=== PATIENT | male | born 1970 | race Two or more races ===

== ENCOUNTER 2016-11-18 02:47 | Emergency (ER) | payer OTHER ==
[~2016-11-18] VITALS: Ht 175.3 cm; Wt 86.7 kg
[2016-11-18] MEDS ORDERED: KETOROLAC TROMETHAMINE INJ 30 MG/ML VIAL IV ONE (03:00)
[2016-11-18] MEDS ORDERED: KETOROLAC TROMETHAMINE INJ 30 MG/ML VIAL ONE (03:10)
[2016-11-18 03:22] LABS: BASOPHILS % (AUTO) 0.7 % (0.0-2.0); DIFF TOTAL % 100 %; EOSINOPHILS # (AUTO) 0.2 /CMM (0.0-0.7); EOSINOPHILS % (AUTO) 2.7 % (0.0-6.0); HEMATOCRIT 47 % (39-51); HEMOGLOBIN 15.9 g/dL (13.5-17.5); LYMPHOCYTES # (AUTO) 2.6 /CMM (0.8-4.8); LYMPHOCYTES % (AUTO) 45.4 % (20.0-44.0); MEAN CORPUSCULAR HEMOGLOBIN 28 PG (26.0-33.0); MEAN CORPUSCULAR HGB CONC 34 g/dl (31.0-36.0); MEAN CORPUSCULAR VOLUME 82 fL (80-96); MONOCYTES # (AUTO) 0.6 /CMM (0.1-1.30); MONOCYTES % (AUTO) 10.2 % (2.0-12.0); NEUTROPHILS # (AUTO) 2.3 /CMM (1.8-8.9); PLATELET COUNT (AUTO) 349 /CMM (150-450); RED BLOOD CELL COUNT(AUTO) 5.67 MIL/uL (4.5-6.0); WHITE BLOOD COUNT (AUTO) 5.7 K/uL (4.3-11.0)
[2016-11-18 03:31] LABS: ANION GAP 14 (5-14); CALCIUM, SERUM 9.6 mg/dL (8.5-10.1); CARBON DIOXIDE 27 mmol/L (21-32); CHLORIDE 103 mmol/L (98-107); GFR 80 mL/min (>60); GLUCOSE 124 mg/dL (74-106); POTASSIUM 3.7 mmol/L (3.5-5.1); SODIUM SERUM 140 mmol/L (136-145); UREA NITROGEN, BLOOD 12 mg/dL (7-18)
[2016-11-18 03:40] LABS: TROPONIN I < 0.017 ng/mL (0.00-0.056)
[2016-11-18 03:42] LABS: INR 1.05 (0.87-1.13); PROTHROMBIN TIME 11.4 SECS (9.5-12.7)
[2016-11-18] MEDS ORDERED: LORAZEPAM INJ 2 MG/ML VIAL ONE (04:22)
[2016-11-18] MEDS ORDERED: LORAZEPAM INJ 2 MG/ML VIAL IV ONE (04:30)
[2016-11-18 04:56] VITALS: BP 137/69
== END 2016-11-18 04:58 | disposition home or self-care (01) ==
LOC: ER 02:49
DX: R07.9 Chest pain, unspecified (principal); G47.00 Insomnia, unspecified; F41.9 Anxiety disorder, unspecified; Z88.0 Allergy status to penicillin
CPT/HCPCS: 36415; 71010; 80048; 84484; 85025; 85378; 85730; 93005; 96374 ×2; 99285; A4606; J1885; J2060; Z7610

== ENCOUNTER 2018-06-24 19:45 | Inpatient (IN) | payer OTHER ==
[~2018-06-24] VITALS: Ht 175.3 cm; Wt 90.3 kg
--- NOTE | 2018-06-24 20:05 | NUR ---
PT BIB FAMILY. PT STATES HE WAS SEEN AT AN URGENT CARE EARLIER TODAY AND BROUGHT IN FOR POSSIBLE APPENDIX. PT HAS PAIN ON PALPATION. PT DENIES NVD. AAOX4, RESPIRATIONS EVEN AND UNLABORED. NO ACUTE DISTRESS NOTED AT THIS TIME. PT PLACED ON MONITOR, WAITING MD EVALUATION
--- NOTE | 2018-06-24 20:13 | NUR ---
MD AT BEDSIDE FOR EVALUATION
--- NOTE | 2018-06-24 20:20 | NUR ---
[employer]BEST[employer] SIDING INSTALLER AT BEDSIDE FOR LABS
[2018-06-24 20:28] LABS: BASOPHILS # (AUTO) 0.1 /CMM (0.0-0.2); BASOPHILS % (AUTO) 1.8 % (0.0-2.0); EOSINOPHILS % (AUTO) 3.7 % (0.0-6.0); HEMATOCRIT 45 % (39-51); HEMOGLOBIN 14.9 g/dL (13.5-17.5); LYMPHOCYTES # (AUTO) 2.6 /CMM (0.8-4.8); LYMPHOCYTES % (AUTO) 45.7 % (20.0-44.0); MEAN CORPUSCULAR HGB CONC 33 g/dl (31.0-36.0); MEAN CORPUSCULAR VOLUME 82 fL (80-96); MONOCYTES # (AUTO) 0.7 /CMM (0.1-1.30); NEUTROPHILS # (AUTO) 2.1 /CMM (1.8-8.9); NEUTROPHILS % (AUTO) 36.8 % (43.0-81.0); PLATELET COUNT (AUTO) 433 /CMM (150-450); RDW COEFFICIENT OF VARIATION 12.8 (11.5-15.0); RED BLOOD CELL COUNT(AUTO) 5.46 MIL/uL (4.5-6.0); WHITE BLOOD COUNT (AUTO) 5.7 K/uL (4.3-11.0)
[2018-06-24] MEDS ORDERED: IV NS 0.9% 1,000 ML BAG IV ONE (20:30)
[2018-06-24 20:49] LABS: ALBUMIN 3.6 g/dL (3.4-5.0); BILIRUBIN,TOTAL 0.2 mg/dL (0.2-1.0); CALCIUM, SERUM 9.5 mg/dL (8.5-10.1); CREATININE 1.1 mg/dL (0.6-1.3); POTASSIUM 4.1 mmol/L (3.5-5.1); TOTAL PROTEIN, SERUM 7.6 g/dL (6.4-8.2)
[2018-06-24] MEDS ORDERED: CT SWABBABLE VALVE TRANS SET 1 EA INFUS.SET MC ONE (21:18)
[2018-06-24] MEDS ORDERED: IV NS 0.9% 250 ML IV ONE (21:18)
[2018-06-24] MEDS ORDERED: IOHEXOL-300 100 ML VIAL IV ONE (21:18)
--- NOTE | 2018-06-24 21:18 | NUR ---
CALLED RADIOLOGY FOR CT
--- NOTE | 2018-06-24 21:20 | NUR ---
PT BROUGHT BY RADIOLOGY FOR CT
[2018-06-24 21:26] LABS: APPEARANCE,URINE Clear (CLEAR); BILIRUBIN,URINE Negative (NEGATIVE); BLOOD, URINE Moderate Ery/uL (NEGATIVE); COLOR,URINE Yellow (YELLOW); KETONES,URINE Negative (NEGATIVE); LEUKOCYTE ESTERASE ,URINE Negative (NEGATIVE); NITRITE, URINE Negative (NEGATIVE); PH,URINE 5.5 (5.0-8.0); PROTEIN,URINE Negative (NEGATIVE); UGLUCOSE Negative (NEGATIVE); UROBILINOGEN,URINE 0.2 EU/dL (0.2)
--- NOTE | 2018-06-24 21:35 | NUR ---
PT RETURNED FROM CT
[2018-06-24 21:48] LABS: BACTERIA,URINE Rare /HPF (None Seen); CALCIUM OXALATE CRYSTALS,UR Moderate /HPF (None Seen); SQUAMOUS EPITHELIAL CELL,UR Few /HPF (None Seen); URINE AMORPHOUS URATE Few /HPF (None Seen); WBC,URINE 0-2 /HPF (0-3)
--- NOTE | 2018-06-24 22:25 | NUR ---
CALLED [facility] FOR REPORT. STATES IT IS CURRENTLY BEING READ
[2018-06-24] MEDS ORDERED: CIPROFLOXACIN IV RTU 400 MG in PREMIX 1 EA IV STA (22:33)
--- NOTE | 2018-06-24 22:45 | NUR ---
CALLED [facility] FOR PANEL ADMISSION, DR. SWEENEY SPEAKING DR. LEI AT THIS TIME.
[2018-06-24] MEDS ORDERED: PIPERACILLIN /TAZOBACTAM 3.375 G VIAL IV ONE (22:47)
[2018-06-24] MEDS ORDERED: FLAGYL/NS RTU 500 MG/100 ML PIGGYBACK IV ONE (23:00)
[2018-06-24] MEDS ORDERED: PIPERACILLIN /TAZOBACTAM 3.375 G in IV D5W 50 ML IV ONE (23:00)
--- NOTE | 2018-06-24 23:13 | NUR ---
GAVE REPORT TO ESTEFANI PRINCE FOR MIR
--- NOTE | 2018-06-24 23:26 | NUR ---
PT TRANSFERRED TO [facility] WITH EMT
[2018-06-24 23:30] VITALS: BP 132/81
[2018-06-24] MEDS ORDERED: Z GUARD REMEDY 2 OZ OINT TP PRN (23:30)
[2018-06-24] MEDS ORDERED: MAG HYDROX/AL HYDROX/SIMETH 30 ML UDC PO PRN (23:30)
[2018-06-24] MEDS ORDERED: MAGNESIUM HYDROXIDE 30 ML UDC PO PRN (23:30)
[2018-06-24] MEDS ORDERED: ZOLPIDEM TARTRATE 5 MG TABLET PO PRN (23:30)
[2018-06-24] MEDS ORDERED: METRONIDAZOLE 500MG/ NS 100ML 100 ML IV ONE (23:42)
[2018-06-24] MEDS: IV 1/2NS 1000 ML 1,000 ML IV PRN (23:48)
[2018-06-24] MEDS: METRONIDAZOLE 500MG/ NS 100ML 500 MG in PREMIX 1 EA IV SCH (23:56)
[2018-06-25 00:19] VITALS: BP 132/81
--- NOTE | 2018-06-25 00:33 | NUR ---
RN ADMITTING NOTE; ADMITTED A 48 Y/O M, A, OX4, WITH MOTHER AT THE BED SIDE. PT AMBULATORY TO THE BED. BREATHING EVENLY . NO SOB. NAD. VSS, SKIN WARM AND DRY. DENIED PAIN AT THIS TIME. NO N/V. IV SITE INTACT AND PATENT. MEDICAL HX WAS OBTAINED FROM THE PT. NEEDS MET. BED LOW LOCKED. CALL LIGHT WITHIN REACH. WILL CONT TO MONITOR .
[2018-06-25] MEDS ORDERED: LEVOFLOXACIN 750 MG /D5W 150ML 150 ML IV ONE (00:51)
[2018-06-25] MEDS: LEVOFLOXACIN 750 MG /D5W 150ML 750 MG in PREMIX 1 EA IV SCH (00:55)
[2018-06-25] MEDS ORDERED: METRONIDAZOLE 500MG/ NS 100ML 100 ML IV ONE (05:40)
[2018-06-25] MEDS: METRONIDAZOLE 500MG/ NS 100ML 500 MG in PREMIX 1 EA IV SCH ×4 (05:51→23:07)
--- NOTE | 2018-06-25 06:42 | NUR ---
MS2/RN MS2/RN PATIENT IS AWAKE, COMFORTABLE, NO C/O PAIN, NO DISTRESS NOTED, CALL LIGHT IN REACH, ALL NEEDS ATTENDED AT THIS TIME. WILL CONTINUE TO MONITOR.
[2018-06-25 07:12] LABS: ALBUMIN 3.2 g/dL (3.4-5.0); BILIRUBIN,TOTAL 0.3 mg/dL (0.2-1.0); CALCIUM, SERUM 8.6 mg/dL (8.5-10.1); CREATININE 1.1 mg/dL (0.6-1.3); MAGNESIUM 2.1 mg/dL (1.8-2.4); POTASSIUM 3.7 mmol/L (3.5-5.1); TOTAL PROTEIN, SERUM 6.9 g/dL (6.4-8.2)
--- NOTE | 2018-06-25 07:28 | NUR ---
RN OPENING NOTES RECEIVED PATIENT IN BED RESTING, A/OX3-4, ABLE TO MAKE NEEDS KNOWN. NO ACUTE DISTRESS, NO SOB. DENIED PAIN OR DISCOMFORT AT THIS MOMENT. IV SITE INTACT AND PATENT. KEPT PATIENT SAFE AND COMFORTABLE. BED IN LOW/LOCKED POSITION, SIDERAILS UPX2, CALL LIGHT IN REACH. WILL CONTINUE TO MONITOR ACCORDINGLY. Addendum: 06/25/18 at 0731 by GENNARO GONZALEZ KEPT PATIENT NPO
[2018-06-25] MEDS ORDERED: ZOLP12.52 PO (07:59)
[2018-06-25] MEDS ORDERED: SERT25TA PO (07:59)
[2018-06-25] MEDS ORDERED: LORA2TAB PO (07:59)
[2018-06-25 08:00] VITALS: BP 148/98
[2018-06-25 08:29] LABS: HEMATOCRIT 42 % (39-51); HEMOGLOBIN 14.4 g/dL (13.5-17.5); MEAN CORPUSCULAR VOLUME 82 fL (80-96); RED BLOOD CELL COUNT(AUTO) 5.12 MIL/uL (4.5-6.0); WHITE BLOOD COUNT (AUTO) 6.7 K/uL (4.3-11.0)
[2018-06-25 08:30] LABS: BASOPHILS # (AUTO) 0.1 /CMM (0.0-0.2); BASOPHILS % (AUTO) 0.9 % (0.0-2.0); LYMPHOCYTES # (AUTO) 2.1 /CMM (0.8-4.8); LYMPHOCYTES % (AUTO) 30.7 % (20.0-44.0); MEAN CORPUSCULAR HGB CONC 34 g/dl (31.0-36.0); MONOCYTES # (AUTO) 0.7 /CMM (0.1-1.30); MONOCYTES % (AUTO) 10.9 % (2.0-12.0); NEUTROPHILS # (AUTO) 3.7 /CMM (1.8-8.9); NEUTROPHILS % (AUTO) 54.5 % (43.0-81.0); PLATELET COUNT (AUTO) 338 /CMM (150-450); RDW COEFFICIENT OF VARIATION 13.5 (11.5-15.0)
[2018-06-25] MEDS: MORPHINE SULFATE INJ 4 MG/ML DISP.SYRIN IV PRN ×2 (12:09→17:32)
--- NOTE | 2018-06-25 13:21 | NUR ---
DR BAUTISTA AT BEDSIDE TALKING TO PATIENT. NO SURGERY TODAY PER DR BAUTISTA AND WILL EVALUATE TOMORROW.
--- NOTE | 2018-06-25 13:22 | NUR ---
CLEAR LIQUID DIET, ADVANCE TOLERATED AND NPO AFTER MIDNIGHT, PER DR BAUTISTA.
[2018-06-25] MEDS: ACETAMINOPHEN 325 MG TABLET PO PRN ×2 (13:33→19:44)
[2018-06-25] MEDS: ONDANSETRON HCL/PF 4 MG/2 ML VIAL IVP PRN ×2 (13:53→21:26)
[2018-06-25] MEDS: LORAZEPAM INJ 2 MG/ML VIAL IV PRN (14:06)
[2018-06-25] MEDS: HYDROCODONE/APAP 5/325MG 1 EACH TABLET PO PRN ×2 (14:37→20:46)
[2018-06-25 16:00] VITALS: BP 126/72
[2018-06-25] MEDS: IV 1/2NS 1000 ML 1,000 ML IV PRN (18:06)
--- NOTE | 2018-06-25 19:15 | NUR ---
MS RN OPENING NOTES RECEIVED PATIENT IN BED RESTING, A/OX3-4, FAMILY @ BED SIDE. ABLE TO MAKE NEEDS KNOWN. NO ACUTE DISTRESS, NO SOB. DENIED PAIN OR DISCOMFORT AT THIS MOMENT. IV SITE INTACT AND PATENT TO LAC WITH IVF ORDERED. KEPT PATIENT SAFE AND COMFORTABLE. BED IN LOW/LOCKED POSITION, SIDE RAILS UPX2, CALL LIGHT IN REACH. WILL CONTINUE TO MONITOR ACCORDINGLY.
--- NOTE | 2018-06-25 19:31 | NUR ---
PATIENT IN STABLE CONDITION. ALL NEEDS ATTENDED AND PROVIDED. ALL DUE MEDS GIVEN ORDERED. KEPT PATIENT SAFE AND COMFORTABLE. BED IN LOW/LOCKED POSITION, SIDERAILS UPX2, CALL LIGHT IN REACH. ENDORSED TO NIGHT RN FOR MIR.
--- NOTE | 2018-06-25 19:44 | NUR ---
PRN TYLENOL GIVEN PATIENT C/O MAGRAIN & REQUESTED TO TAKE TYLENOL @ THIS TIME. WILL REASSESS FOR EFFECTIVENESS.
--- NOTE | 2018-06-25 19:50 | NUR ---
NEW ORDER PT STATED THAT HE USED TO TAKE EXCEDRIN WITH CAFFEINE FOR MAGRAIN WHICH HELPS THAN OTHER MEDS. WELL DRILL OPERATOR MD WAS CALLED & RECEIVED NEW ORDER TO GIVE EXCEDRIN WITH CAFFEINE ONE TIME ONLY. ORDER NOTED & CARRIED OUT. PT WAS GIVEN TYLENOL FEW MINUTES AGO REQUESTED. WILL GIVE NEW ORDERED MED IF PT NEEDS IT LATER. MONITORING THE PT CLOSELY.
[2018-06-25 20:00] VITALS: BP 133/83
[2018-06-25] MEDS ORDERED: ASPIRIN/ACETAMINOPHEN/CAFFEINE 1 EACH TABLET PO ONE (20:00)
--- NOTE | 2018-06-25 20:46 | NUR ---
PRN NORCO GIVEN PATIENT C/O HEADACHE 02/04, WANTED TO TAKE NORCO AT THIS TIME, PT ALSO WANTS TO WAIT TO TAKE EXCEDRIN RIGHT BEFORE MIDNIGHT. PRN NORCO GIVEN & WILL REASSESS FOR EFFECTIVENESS.
--- NOTE | 2018-06-25 21:26 | NUR ---
PRN ZOFRAN GIVEN PT VERBALIZED OF HAVING NAUSEA, NO VOMITING NOTED AT THIS TIME. PT WANTED TO GET ZOFRAN, PRN ZOFRAN GIVEN ORDERED, WILL REASSESS FOR EFFECTIVENESS.
--- NOTE | 2018-06-25 23:03 | NUR ---
MS RN NOTE PT STATED THAT HIS HEADACHE IS COMPLETELY RECEIVED AT THIS TIME & HE DOESN'T WANT TO TAKE EXCEDRIN NOW & WANTS TO HOLD ON TO EXCEDRIN. WILL CONTINUE TO MONITOR.
[2018-06-26] MEDS: LEVOFLOXACIN 750 MG /D5W 150ML 750 MG in PREMIX 1 EA IV SCH (00:14)
--- NOTE | 2018-06-26 00:14 | NUR ---
PRN AMBIEN GIVEN PT REQUESTED TO TAKE AMBIEN FOR SLEEPLESSNESS. PRN AMBIEN GIVEN, WILL REASSESS FOR EFFECTIVENESS. PT WILL BE NPO FROM NOW, VERBALIZED UNDERSTANDING. REFUSED TO TAKE EXCEDRIN SINCE HEADACHE WAS RECEIVED. WILL MONITOR CLOSELY.
[2018-06-26] MEDS: LORAZEPAM INJ 2 MG/ML VIAL IV PRN (05:05)
--- NOTE | 2018-06-26 05:05 | NUR ---
PRN ATIVAN GIVEN PT VERBALIZED OF BEING ANXIOUS, WANTED TO GET ATIVAN. PRN ATIVAN GIVEN ORDERED. WILL REASSESS FOR EFFECTIVENESS.
[2018-06-26] MEDS: METRONIDAZOLE 500MG/ NS 100ML 500 MG in PREMIX 1 EA IV SCH (05:08)
--- NOTE | 2018-06-26 07:12 | NUR ---
MS RN CLOSING NOTES PATIENT SLEPT FEW HOURS ONLY & IS IN BED RESTING AT THIS TIME, A/OX3-4. ABLE TO MAKE NEEDS KNOWN. NO ACUTE DISTRESS, NO SOB. DENIED PAIN OR DISCOMFORT AT THIS MOMENT. NPO FOR EVAL BY DR BAUTISTA. IV SITE INTACT AND PATENT TO LAC WITH IVF ORDERED. KEPT PATIENT SAFE AND COMFORTABLE. BED IN LOW/LOCKED POSITION, SIDE RAILS UPX2, CALL LIGHT IN REACH. ENDORSED TO AM RN FOR CONTINUITY OF CARE.
--- NOTE | 2018-06-26 07:21 | NUR ---
refused Excedrin all night pt refused to take Excedrin at night, he took norco & it was effective. pt continued refusing Excedrin & will give the med back to pharmacy.
--- NOTE | 2018-06-26 07:24 | NUR ---
RN OPENING NOTES RECEIVED PATIENT IN BED RESTING, A/OX3-4, ABLE TO MAKE NEEDS KNOWN. NO ACUTE DISTRESS, NO SOB. DENIED PAIN OR DISCOMFORT AT THIS MOMENT. IV SITE INTACT AND PATENT. KEPT PATIENT SAFE AND COMFORTABLE. BED IN LOW/LOCKED POSITION, SIDERAILS UPX2, CALL LIGHT IN REACH. KEPT NPO FOR POSSIBLE SURGERY TODAY. WILL CONTINUE TO MONITOR ACCORDINGLY.
[2018-06-26 07:37] LABS: BASOPHILS % (AUTO) 0.5 % (0.0-2.0); EOSINOPHILS % (AUTO) 2.9 % (0.0-6.0); HEMATOCRIT 44 % (39-51); HEMOGLOBIN 14.5 g/dL (13.5-17.5); LYMPHOCYTES # (AUTO) 2.1 /CMM (0.8-4.8); LYMPHOCYTES % (AUTO) 42.2 % (20.0-44.0); MEAN CORPUSCULAR HGB CONC 33 g/dl (31.0-36.0); MEAN CORPUSCULAR VOLUME 84 fL (80-96); MONOCYTES # (AUTO) 0.5 /CMM (0.1-1.30); MONOCYTES % (AUTO) 10.7 % (2.0-12.0); NEUTROPHILS # (AUTO) 2.1 /CMM (1.8-8.9); NEUTROPHILS % (AUTO) 43.7 % (43.0-81.0); PLATELET COUNT (AUTO) 381 /CMM (150-450); RDW COEFFICIENT OF VARIATION 13.7 (11.5-15.0); RED BLOOD CELL COUNT(AUTO) 5.21 MIL/uL (4.5-6.0); WHITE BLOOD COUNT (AUTO) 4.9 K/uL (4.3-11.0)
[2018-06-26 07:42] LABS: CALCIUM, SERUM 9.1 mg/dL (8.5-10.1); CREATININE 0.9 mg/dL (0.6-1.3); POTASSIUM 3.5 mmol/L (3.5-5.1)
[2018-06-26 08:00] VITALS: BP 134/85
--- NOTE | 2018-06-26 10:05 | NUR ---
DR BAUTISTA ON BEDSIDE TALKING TO PATIENT. NEW ORDER NOTED AND WILL CARRY OUT. MD ORDER TO ADVANCE DIET TO REGULAR, AND DISCHARGE.
--- NOTE | 2018-06-26 11:45 | NUR ---
DISCHARGED PATIENT IN STABLE CONDITION PICKED UP BY FRIEND, ACCOMPANIED BY GUNNAR DAVIES AT THE LOBBY. DISCHARGE INSTRUCTIONS GIVEN , VERBALIZED UNDERSTANDING. DISCHARGE PAPERWORK AND PRESCRIPTION GIVEN TO PATIENT. ALL BELONGINGS RETURNED, FORMS SIGNED. REMOVED IV, APPLIED PRESSURE, NO BLEEDING, NO COMPLICATIONS. REMOVED NAME BAND.
== END 2018-06-26 12:00 | disposition home or self-care (01) | DRG 392 ==
LOC: ER 19:53 → MEDSG2 23:14 → MED 06-26 06:09
PROVIDERS: ADMIT Internal Medicine; ATTEND Internal Medicine
DX: K52.9 Noninfective gastroenteritis and colitis, unspecified (principal); K35.80 Unspecified acute appendicitis; N28.1 Cyst of kidney, acquired; Z88.0 Allergy status to penicillin; F41.9 Anxiety disorder, unspecified; G47.00 Insomnia, unspecified
CPT/HCPCS: 36415; 80048-TC; 80053-TC; 80061-TC; 80076-TC; 81000-TC; 83690-TC; 83735-TC; 84100-TC; 85025-TC; 87081-TC; 87086-TC; A4216; A4606; J0744; J1956; J2060; J2270; J2405; J2543; J3490; J7030; J7050; J7060; Q9967; Z7610

== ENCOUNTER 2018-10-27 15:41 | Inpatient (IN) | payer BC, OTHER ==
[~2018-10-27] VITALS: Ht 176.5 cm; Wt 95.7 kg
[~2018-10-27 15:41] MED LIST: LORA2TAB PO; SERT25TA PO; ZOLP12.52 PO
--- NOTE | 2018-10-27 16:13 | NUR ---
BIB MOTHER, C/O MID ABD PAIN WITH NAUSEA, NO DIARRHEA SINCE YESTERDAY. PAIN IS 6/10 AND SHARP. PT IS AOX4, AMB, VSS, RR EVEN AND UNLABORED. SKIN INTACT, NO ACUTE DISTRESS NOTED. DENIES DIZZINESS, WEAKNESS. READY FOR EVAL.
[2018-10-27 16:27] LABS: BASOPHILS % (AUTO) 0.5 % (0.0-2.0); EOSINOPHILS % (AUTO) 0.1 % (0.0-6.0); HEMATOCRIT 47 % (39-51); HEMOGLOBIN 16.3 g/dL (13.5-17.5); LYMPHOCYTES # (AUTO) 1.1 /CMM (0.8-4.8); LYMPHOCYTES % (AUTO) 14.8 % (20.0-44.0); MEAN CORPUSCULAR HGB CONC 35 g/dl (31.0-36.0); MEAN CORPUSCULAR VOLUME 82 fL (80-96); MONOCYTES % (AUTO) 14.1 % (2.0-12.0); NEUTROPHILS # (AUTO) 5.1 /CMM (1.8-8.9); NEUTROPHILS % (AUTO) 70.5 % (43.0-81.0); PLATELET COUNT (AUTO) 240 /CMM (150-450); WHITE BLOOD COUNT (AUTO) 7.2 K/uL (4.3-11.0)
[2018-10-27] MEDS ORDERED: HYDROMORPHONE 1 MG/1 ML DISP.SYRIN IV ONE (16:30)
[2018-10-27] MEDS ORDERED: MORPHINE SULFATE INJ 10 MG/ML DISP.SYRIN IV ONE (16:30)
[2018-10-27] MEDS ORDERED: ONDANSETRON HCL/PF 4 MG/2 ML VIAL ONE (16:30)
[2018-10-27] MEDS ORDERED: ONDANSETRON HCL/PF 4 MG/2 ML VIAL IVP ONE (16:30)
[2018-10-27] MEDS ORDERED: HYDROMORPHONE INJ 0.5 MG/0.5 ML SYRINGE ONE (16:31)
[2018-10-27 16:34] LABS: CALCIUM, SERUM 9.9 mg/dL (8.5-10.1); CREATININE 1.3 mg/dL (0.6-1.3); POTASSIUM 3.6 mmol/L (3.5-5.1)
[2018-10-27 16:40] LABS: ALBUMIN 3.8 g/dL (3.4-5.0); BILIRUBIN,DIRECT 0.2 mg/dL (0.0-0.2); BILIRUBIN,TOTAL 1.1 mg/dL (0.2-1.0); TOTAL PROTEIN, SERUM 7.6 g/dL (6.4-8.2)
--- NOTE | 2018-10-27 16:50 | NUR ---
PT TAKEN TO CT VIA [facility]
[2018-10-27] MEDS ORDERED: CT SWABBABLE VALVE TRANS SET 1 EA INFUS.SET MC ONE (16:54)
[2018-10-27] MEDS ORDERED: IOHEXOL-300 100 ML VIAL IV ONE (16:54)
[2018-10-27] MEDS ORDERED: IV NS 0.9% 250 ML IV ONE (16:54)
--- NOTE | 2018-10-27 17:06 | NUR ---
PT BACK FROM CT. KVNG WELL. WILL CONT TO MONITOR.
--- NOTE | 2018-10-27 17:26 | NUR ---
PT RESTING COMFORTABLY IN BED. VSS. NO COMPLAINTS AT THIS TIME. WILL CONT TO MONITOR.
[2018-10-27] MEDS ORDERED: PIPERACILLIN /TAZOBACTAM 3.375 G VIAL IV ONE ×2 (17:29→21:56)
[2018-10-27] MEDS ORDERED: PIPERACILLIN /TAZOBACTAM 3.375 G in IV D5W 50 ML IV ONE ×2 (17:30→23:00)
--- NOTE | 2018-10-27 17:59 | NUR ---
BED 321 MS ADM DX APPENDICITIS
[2018-10-27] MEDS ORDERED: IV NS 0.9% 1,000 ML BAG IV ONE (18:00)
[2018-10-27] MEDS ORDERED: SERT100T12 PO (18:17)
--- NOTE | 2018-10-27 18:22 | NUR ---
REPORT GIVEN TO SURESH GONZALEZ FOR 320-1 MS
--- NOTE | 2018-10-27 18:30 | NUR ---
PT TRANSFERRED TO FLOOR Addendum: 10/27/18 at 1848 by CJUWONO IVF STILL INFUSING
--- NOTE | 2018-10-27 19:39 | NUR ---
MS RN NOTE RECEIVED PT IN STABLE CONDITION A&OX4 ABLE TO MAKE NEEDS KNOWN. NOT SIGNS OF SOB OR DISTRESS. PT SKIN IS INTACT, ABLE TO AMBULATE TO THE RESTROOM WITH STEADY GAIT. ALL BELONGINGS ACCOUNTED AND SIGNED FOR AND PLACED IN CHART. FAMILY AT BEDSIDE. BED LOW, LOCKED AND UPPER RAILS UP X2, CALL LIGHT WITHIN REACH. WILL CONT. TO MONITOR.
[2018-10-27 20:00] VITALS: BP 130/80
[2018-10-27] MEDS ORDERED: Z GUARD REMEDY 2 OZ OINT TP PRN (20:00)
[2018-10-27] MEDS ORDERED: MAGNESIUM HYDROXIDE 30 ML UDC PO PRN (20:00)
[2018-10-27] MEDS ORDERED: HYDROCODONE/APAP 5/325MG 1 EACH TABLET PO PRN (20:00)
[2018-10-27] MEDS ORDERED: HYDROMORPHONE INJ 2 MG/ML DISP.SYRIN IV PRN (20:00)
[2018-10-27] MEDS ORDERED: ZOLPIDEM TARTRATE 5 MG TABLET PO PRN (20:00)
[2018-10-27] MEDS ORDERED: ONDANSETRON HCL/PF 4 MG/2 ML VIAL IVP PRN (20:00)
[2018-10-27] MEDS: HYDROMORPHONE INJ 0.5 MG/0.5 ML SYRINGE IV PRN (20:17)
--- NOTE | 2018-10-27 20:17 | NUR ---
MS RN NOTE PRN DILAUDID GIVEN TO PT FOR PAIN 05/07. WILL CONT TO MONITOR.
[2018-10-27] MEDS: IV D5/0.45 NACL 1,000 ML IV PRN (20:26)
--- NOTE | 2018-10-27 22:28 | NUR ---
MS RN NOTE CLARIFIED ZOSYN 3.375 GM DOSE FOR 2300 WITH MERRICK (PHARM). WAS TOLD TO GIVE 2300 DOSE AND AM PHARM TO FOLLOW UP WITH NEXT DOSE.
[2018-10-28] MEDS ORDERED: PIPERACILLIN /TAZOBACTAM 3.375 G in IV D5W 50 ML IV SCH ×2
[2018-10-28] MEDS: ACETAMINOPHEN 325 MG TABLET PO PRN ×2 (01:07→10:15)
--- NOTE | 2018-10-28 01:07 | NUR ---
MS RN NOTE PRN TYLENOL 650 MG GIVEN FOR HEADACHE PAIN 11/07. WILL CONT. TO MONITOR.
[2018-10-28] MEDS: HYDROMORPHONE INJ 0.5 MG/0.5 ML SYRINGE IV PRN ×5 (01:53→22:02)
--- NOTE | 2018-10-28 01:53 | NUR ---
MS RN NOTE PRN DILAUDID 0.5 MG GIVEN FOR ABD. PAIN 8. WILL CONT TO MONITOR.
[2018-10-28] MEDS: IV D5/0.45 NACL 1,000 ML IV PRN ×2 (04:15→22:02)
[2018-10-28] MEDS: LORAZEPAM 1 MG TABLET PO PRN (05:31)
--- NOTE | 2018-10-28 05:32 | NUR ---
MS RN NOTE PRN ATIVAN 2 MG GIVEN FOR ANXIETY. WILL CONT. TO MONITOR.
--- NOTE | 2018-10-28 06:22 | NUR ---
MS RN NOTE PT IN STABLE CONDITION A&OX4 ABLE TO MAKE NEEDS KNOWN. NO SIGNS OF SOB OR DISTRESS. PT SKIN IS INTACT, ABLE TO AMBULATE TO THE RESTROOM WITH STEADY GAIT. PAIN MANAGED THROUGHOUT SHIFT ORDERED BY MD. SAFETY PRECAUTIONS IN PLACE: BED LOW, LOCKED AND UPPER RAILS UP X2, CALL LIGHT WITHIN REACH. WILL CONT. TO MONITOR AND ENDORSE TO NEXT SHIFT FOR CONT. OF CARE.
[2018-10-28 07:02] LABS: BASOPHILS % (AUTO) 0.5 % (0.0-2.0); EOSINOPHILS % (AUTO) 1.4 % (0.0-6.0); HEMATOCRIT 44 % (39-51); HEMOGLOBIN 14.7 g/dL (13.5-17.5); LYMPHOCYTES # (AUTO) 1.8 /CMM (0.8-4.8); LYMPHOCYTES % (AUTO) 32.6 % (20.0-44.0); MEAN CORPUSCULAR HGB CONC 34 g/dl (31.0-36.0); MEAN CORPUSCULAR VOLUME 83 fL (80-96); MONOCYTES # (AUTO) 1.1 /CMM (0.1-1.30); MONOCYTES % (AUTO) 19.7 % (2.0-12.0); NEUTROPHILS # (AUTO) 2.5 /CMM (1.8-8.9); NEUTROPHILS % (AUTO) 45.8 % (43.0-81.0); PLATELET COUNT (AUTO) 214 /CMM (150-450); RED BLOOD CELL COUNT(AUTO) 5.27 MIL/uL (4.5-6.0); WHITE BLOOD COUNT (AUTO) 5.5 K/uL (4.3-11.0)
--- NOTE | 2018-10-28 07:20 | NUR ---
RN OPENING NOTES RECEIVED PATIENT IN BED ASLEEP, AROUSES EASILY. A/OX3, ABLE TO MAKE NEEDS KNOWN. NOT IN ANY FORM OF DISTRESS, NO SOB. DENIED PAIN OR DISCOMFORT AT THIS TIME. IV ACCESS INTACT AND PATENT. KEPT PATIENT NPO. KEPT PATIENT SAFE AND COMFORTABLE. BED IN LOW/LOCKED POSITION, SIDERAILS UPX2, CALL LIGHT IN REACH. WILL CONTINUE TO MONITOR ACCORDINGLY
[2018-10-28 07:26] LABS: CALCIUM, SERUM 8.7 mg/dL (8.5-10.1); CREATININE 1.1 mg/dL (0.6-1.3); POTASSIUM 3.7 mmol/L (3.5-5.1)
[2018-10-28 08:00] VITALS: BP 117/73
[2018-10-28] MEDS: PIPERACILLIN /TAZOBACTAM 3.375 G in IV D5W 100 ML IV SCH ×3 (08:25→23:16)
[2018-10-28 08:57] LABS: EOSINOPHILS % (MANUAL) 1 % (0-4); LYMPHOCYTES % (MANUAL) 25 % (16-48); MONOCYTES % (MANUAL) 18 % (0-11.0); NEUTROPHILS % (MANUAL) 56 (42-76)
[2018-10-28] MEDS: SERTRALINE HCL 50 MG TABLET PO SCH ×2 (09:00→10:15)
[2018-10-28] MEDS ORDERED: Medication Not On Formulary EA (Sertraline Hcl 100 MG) PO SCH (09:00)
[2018-10-28 16:30] VITALS: BP 134/76
--- NOTE | 2018-10-28 19:07 | NUR ---
RN CLOSING NOTES PATIENT IN STABLE CONDITION. NO SIGNIFICANT CHANGE DURING THE SHIFT. ALL NEED ATTENDED AND PROVIDED. ALL DUE MEDICATIONS GIVEN ORDERED. KEPT PATIENT SAFE AND COMFORTABLE. BED IN LOW/LOCKED POSITION, SIDERAILS UPX2, SEMIFOWLERS, CALL LIGHT IN REACH. ENDORSED TO NIGHT RN FOR MIR.
--- NOTE | 2018-10-28 19:30 | NUR ---
MS RN NOTE: PATIENT RESTING IN BED, NO ACUTE DISTRESS NOTED, FAMILY AT BEDSIDE. BREATHING EVEN AND UNLABORED, NO SOB NOTED. IV TO RAC IN PLACE, INFUSING D5 1/2NS AT 125ML/HR. BED LOCKED AND IN LOWEST POSITION, CALL LIGHT IN REACH, WILL CONTINUE TO MONITOR.
[2018-10-28 19:59] VITALS: BP 130/75
--- NOTE | 2018-10-28 22:15 | NUR ---
MS RN NOTE: PATIENT COMPLAINS OF ABDOMINAL PAIN 05/07, DILAUDID 0.5MG IV GIVEN PER MD ORDER. WILL CONTINUE TO MONITOR.
[2018-10-29] MEDS: HYDROMORPHONE INJ 0.5 MG/0.5 ML SYRINGE IV PRN ×5 (03:08→23:53)
--- NOTE | 2018-10-29 03:15 | NUR ---
MS RN NOTE: PATIENT COMPLAINS OF ABDOMINAL PAIN 05/07, DILAUDID 0.5MG IV GIVEN PER MD ORDER. WILL CONTINUE TO MONITOR.
--- NOTE | 2018-10-29 06:30 | NUR ---
MS RN NOTE: PATIENT RESTING IN BED, NO ACUTE DISTRESS NOTED, FAMILY AT BEDSIDE. BREATHING EVEN AND UNLABORED, NO SOB NOTED. IV TO RAC IN PLACE, INFUSING D5 1/2NS AT 125ML/HR. BED LOCKED AND IN LOWEST POSITION, CALL LIGHT IN REACH, WILL ENDORSE TO DAY NURSE TO CONTINUE WITH PLAN OF CARE.
[2018-10-29 06:36] LABS: BASOPHILS % (AUTO) 0.3 % (0.0-2.0); EOSINOPHILS % (AUTO) 1.8 % (0.0-6.0); HEMATOCRIT 41 % (39-51); HEMOGLOBIN 14.2 g/dL (13.5-17.5); LYMPHOCYTES # (AUTO) 1.1 /CMM (0.8-4.8); LYMPHOCYTES % (AUTO) 18.3 % (20.0-44.0); MEAN CORPUSCULAR HGB CONC 34 g/dl (31.0-36.0); MEAN CORPUSCULAR VOLUME 83 fL (80-96); MONOCYTES # (AUTO) 0.9 /CMM (0.1-1.30); MONOCYTES % (AUTO) 16.4 % (2.0-12.0); NEUTROPHILS # (AUTO) 3.6 /CMM (1.8-8.9); NEUTROPHILS % (AUTO) 63.2 % (43.0-81.0); PLATELET COUNT (AUTO) 210 /CMM (150-450); WHITE BLOOD COUNT (AUTO) 5.7 K/uL (4.3-11.0)
[2018-10-29 06:42] LABS: CALCIUM, SERUM 8.6 mg/dL (8.5-10.1); PHOSPHORUS 2.3 mg/dL (2.5-4.9); POTASSIUM 3.6 mmol/L (3.5-5.1)
--- NOTE | 2018-10-29 07:00 | NUR ---
RN OPENING NOTES PT RESTING IN BED. NO COMPLAINTS OF SOB OR DISTRESS AT THIS TIME. PT HAS A RIGHT AC #20 RUNNING D51/2NS @125ML/HR, PT TOLERATING WELL. PT AWAITING GI CONSULT. WILL FOLLOW UP. SAFETY PRECAUTIONS IN PLACE, BED IN LOWEST LOCKED POSITION, X2 SIDE RAILS UP AND CALL LIGHT WITHIN REACH. WILL CONTINUE TO MONITOR.
[2018-10-29 08:00] VITALS: BP 136/84
[2018-10-29] MEDS: SERTRALINE HCL 50 MG TABLET PO SCH (08:24)
[2018-10-29] MEDS: PIPERACILLIN /TAZOBACTAM 3.375 G in IV D5W 100 ML IV SCH ×3 (08:24→23:00)
--- NOTE | 2018-10-29 08:35 | NUR ---
RN NOTES PAIN MANAGEMENT: DILAUDID 0.5MG FOR ABD PAIN. WILL CONTINUE TO MONITOR.
[2018-10-29] MEDS: POLYETHYLENE GLYCOL 3350 17 GM POWD.PACK PO SCH (11:29)
[2018-10-29] MEDS: SENNOSIDES/DOCUSATE SODIUM 1 TAB TABLET PO SCH (11:30)
[2018-10-29] MEDS ORDERED: NEUTRA PHOS 1 POWD.PACKET PO ONE (13:30)
[2018-10-29] MEDS: IV D5/0.45 NACL 1,000 ML IV PRN (15:18)
--- NOTE | 2018-10-29 15:20 | NUR ---
RN NOTES PAIN MANAGEMENT: DILAUDID 0.5MG FOR ABD PAIN 05/07. WILL CONTINUE TO MONITOR.
[2018-10-29 16:00] VITALS: BP 135/90
--- NOTE | 2018-10-29 18:28 | NUR ---
RN CLOSING NOTES PT RESTING IN BED. MOTHER AT BEDSIDE. NO COMPLAINTS OF SOB OR DISTRESS AT THIS TIME. PT HAS A RIGHT AC #20 RUNNING D51/2NS @125ML/HR, PT TOLERATING WELL. ALL PATIENT NEEDS MET DURING SHIFT. SAFETY PRECAUTIONS IN PLACE, BED IN LOWEST LOCKED POSITION, X2 SIDE RAILS UP AND CALL LIGHT WITHIN REACH. WILL ENDORSE TO DAY SHIFT NURSE FOR CONTINUITY OF CARE.
[2018-10-29] MEDS: MAG HYDROX/AL HYDROX/SIMETH 30 ML UDC PO PRN (18:51)
--- NOTE | 2018-10-29 19:30 | NUR ---
RN NOTES RECEIVED PATIENT RESTING IN BED. WITH COMPLAINTS OF ABDOMINAL PAIN 05/07 AND NAUSEA PATIENT HAS A RIGHT AC #20 RUNNING D51/2NS @125ML/HR, TOLERATING WELL. ALL SAFETY PRECAUTIONS IN PLACE, BED IN LOWEST LOCKED POSITION, X2 SIDE RAILS UP AND CALL LIGHT WITHIN REACH. MOM AT BEDSIDE AT THIS TIME, WILL CONTINUE TO MONITOR ACCORDINGLY.
[2018-10-29 20:00] VITALS: BP 139/97
--- NOTE | 2018-10-29 22:36 | NUR ---
RN NOTES REPORT GIVEN TO RN, RICARDAID AND MIRTA GIVEN PRN AT 1948. ALL NEEDS ATTENDED, PATIENT IS RESTING COMFORTABLY AT THIS TIME.
--- NOTE | 2018-10-29 23:00 | NUR ---
MS/RN NOTES RECEIVED PATIENT IN BED, AWAKE, ABLE TO VERBALIZE NEEDS, ON ROOM AIR, BREATHING NON LABORED, PARTICIPATIVE WITH CARE AND WITH ANTIBIOTIC ZOSYN AND PAIN MANAGEMENT MONITORING, PAIN MEDICATION DILAUDID 0.5 MG IVP PRESCRIBED FOR ABDOMINAL PAIN, OBSERVE HICCUPS, INTERVENTION PROVIDED NON PHARMACOLOGICAL BU BREATHING TECHNIQUE. REQUESTED TO HAVE GOOD SLEEP AND TO TAKE PAIN MEDICATION ONCE IT'S DUE AND TO SLEEP AFTER. WILL MONITOR AND CALL LIGHTS WITHIN REACH, BED LOCKED, PRIOR TO ADMINISTER OF DILAUDID, BLOOD PRESSURE CHECK AT 135/70. WILL MONITOR PAIN RELIEF. BED LOCKED.
--- NOTE | 2018-10-30 05:50 | NUR ---
MS/RN NOTES PATIENT AWAKEN FROM SLEEP REPORTED PAIN IN ABDOMEN, CRAMPING DILAUDID 0.5MG IV TO ADMINISTER AND MONITOR RELIEF,PATIENT HAVING HICCUPS, DEEP BREATHING INSTRUCTIONA, WILL MONITOR.
[2018-10-30] MEDS: HYDROMORPHONE INJ 0.5 MG/0.5 ML SYRINGE IV PRN (05:54)
--- NOTE | 2018-10-30 06:21 | NUR ---
320-1 MS/RN NOTES PATIENT ALERT, ORIENTED, ON PAIN MANAGMENT MONITOIRNG FOR ABDOMINAL PAIN, ABLE TO VERBALIZE NEEDS, SLEPT INTERMITENTLY, MONITORED FOR ANY CHANGES, KEPT CALL LIGHTS WITHIN REACH,, BED LOCKED, WILL ENDORSE TO AM RN FOR MIR. ON IV HYDRATION, IV SITE ON RIGHT AC PATENT. WILL MONITOR.
[2018-10-30 07:09] LABS: CREATININE 1.1 mg/dL (0.6-1.3); MAGNESIUM 2.2 mg/dL (1.8-2.4); PHOSPHORUS 3.4 mg/dL (2.5-4.9); POTASSIUM 3.3 mmol/L (3.5-5.1)
[2018-10-30 08:00] VITALS: BP 134/86
[2018-10-30] MEDS: POLYETHYLENE GLYCOL 3350 17 GM POWD.PACK PO SCH (09:13)
[2018-10-30] MEDS: SENNOSIDES/DOCUSATE SODIUM 1 TAB TABLET PO SCH (09:13)
[2018-10-30] MEDS: PIPERACILLIN /TAZOBACTAM 3.375 G in IV D5W 100 ML IV SCH ×2 (09:13→16:26)
[2018-10-30] MEDS: IV D5/0.45 NACL 1,000 ML IV PRN (09:14)
[2018-10-30] MEDS: SERTRALINE HCL 50 MG TABLET PO SCH (09:14)
[2018-10-30] MEDS ORDERED: POTASSIUM CHLORIDE 20 MEQ TAB.PRT.SR PO SCH (10:00)
[2018-10-30] MEDS ORDERED: IV D5/0.45 NACL 1,000 ML IV PRN (10:25)
--- NOTE | 2018-10-30 10:45 | NUR ---
COLLECTOR OF INTERNAL REVENUE NOTES PT ARRIVED ONTO THE UNIT VIA HOSPITAL BED @1045 ACCOMPANIED BY FAMILY. PT TRANSPORTED VIA ACLS PROTOCOL. PT ON 4L O2 VIA NASAL CANNULA. PT HAS A LEFT UPPER ARM MIDLINE, AND A LEFT FOREARM #18 IV, BOTH INTACT AND PATENT. PT HAS A PORTILLO CATHETER DRAINING WELL. PT HAS RIGHT SIDED WEAKNESS PT STATES FROM PREVIOUS CVA. PT CURRENTLY TELE MONITORED AT NSR W/PACS RATE IN THE 60S. PT VITAL SIGNS STABLE AND WITHIN NORMAL LIMITS. SAFETY PRECAUTIONS IN PLACE, BED IN LOWEST LOCKED POSITION, X2 SIDE RAILS UP AND CALL LIGHT WITHIN REACH. WILL CONTINUE TO MONITOR. Addendum: 10/30/18 at 1523 by BALAJI ONEAL RN WRONG NOTE WRONG PATIENT.
[2018-10-30] MEDS: MAG HYDROX/AL HYDROX/SIMETH 30 ML UDC PO PRN (12:06)
[2018-10-30] MEDS: HYDROCODONE/APAP 10/325MG 1 EA TABLET PO PRN ×2 (13:05→22:33)
[2018-10-30 16:00] VITALS: BP 120/86
--- NOTE | 2018-10-30 19:00 | NUR ---
RN OPENING NOTES RECEIVED PATIENT IN BED, AWAKE ALERT AND ORIENTED X4, RESPIRATIONS EVEN AND UNLABORED WITH EQUAL RISE AND FALL OF CHEST, DENIES ANY PAIN OR DISCOMFORT AT THIS TIME,IV SITE TO RIGHT AC #20 G INTACT AND PATENT, IVF RUNNING ORDERED, NO REDNESS, NO INFILTRATION PRESENT, ORIENTED TO STAFF AND CALL LIGHT AND KEPT WITHIN REACH. SAFETY PRECAUTIONS IN PLACE LOW BED AND LOCKED, ALL NEEDS ATTENDED AT THIS TIME WILL CONTINUE TO MONITOR AND ADDRESS NEEDS.
--- NOTE | 2018-10-30 19:00 | NUR ---
RN CLOSING NOTES PT RESTING IN BED. MOTHER AT BEDSIDE. NO COMPLAINTS OF SOB OR DISTRESS AT THIS TIME. PT HAS A RIGHT AC #20 RUNNING D51/2NS @60ML/HR, PT TOLERATING WELL. ALL PATIENT NEEDS MET DURING SHIFT. SAFETY PRECAUTIONS IN PLACE, BED IN LOWEST LOCKED POSITION, X2 SIDE RAILS UP AND CALL LIGHT WITHIN REACH. WILL ENDORSE TO DAY SHIFT NURSE FOR CONTINUITY OF CARE.
[2018-10-30 20:00] VITALS: BP 127/94
--- NOTE | 2018-10-30 22:33 | NUR ---
RN NOTES PATIENT COMPLAIN OF PAIN TO ABDOMEN 01/05 REQUESTED FOR NORCO 10/325MG. VS WNL. WILL CONTINUE TO MONITOR.
[2018-10-31] MEDS: MAG HYDROX/AL HYDROX/SIMETH 30 ML UDC PO PRN (00:01)
--- NOTE | 2018-10-31 00:04 | NUR ---
rn ms notes patient complaint of feelings of heart burn, gases requesting for maalox, prn given , will continue to monitor.
[2018-10-31] MEDS: PIPERACILLIN /TAZOBACTAM 3.375 G in IV D5W 100 ML IV SCH ×2 (00:39→08:50)
--- NOTE | 2018-10-31 00:40 | NUR ---
RN MS NOTES PATIENT NOTED WITH SCRATCHING SELF TO RIGHT BUTTOCKS UPON ASSESSMENT NOTED SLIGHT REDNESS TO SITE, COOL TO TOUCH, NOT PAINFUL, SKIN IS INTACT NO RASH . SITE CLEANSED WITH SOAP AND WATER, MADE PATIENT AWARE WILL CONTINUE TO MONITOR AND CAN NOTIFY MD, PER PATIENT STATES " ITS OKAY ITS NOTHING SERIOUS." WILL CONTINUE TO MONITOR REMINDED PATIENT TO NOT SCRATCH AND REPOSITION SELF AND KEEP BUTTOCKS AREA CLEAN.
[2018-10-31] MEDS: LORAZEPAM 1 MG TABLET PO PRN (01:59)
--- NOTE | 2018-10-31 01:59 | NUR ---
RN MS NOTES PATIENT REQUESTING FOR ATIVAN STATES " FEELS A LITTLE ANXIOUS AND WOULD LIKE TO GET SOME SLEEP." ATIVAN PRN GIVEN ORDERED 2MG WILL CONTINUE TO MONITOR FOR EFFECTIVENESS. SAFETY PRECAUTIONS IN PLACE, CALL LIGHT KEPT WITHIN REACH.
--- NOTE | 2018-10-31 06:53 | NUR ---
RN CLOSING NOTES PATIENT IN BED, AWAKE ALERT AND ORIENTED X4, RESPIRATIONS EVEN AND UNLABORED WITH EQUAL RISE AND FALL OF CHEST, DENIES ANY PAIN OR DISCOMFORT AT THIS TIME,IV SITE TO RIGHT AC #20 G INTACT AND PATENT, IVF RUNNING ORDERED, NO REDNESS, NO INFILTRATION PRESENT, CALL LIGHT AND KEPT WITHIN REACH. SAFETY PRECAUTIONS IN PLACE LOW BED AND LOCKED, ALL NEEDS ATTENDED AT THIS TIME WILL CONTINUE TO MONITOR ,ADDRESS NEEDS AND ENDORSE TO NEXT SHIFT, RIGHT BUTTOCKS AREA ASSESSED NO RASH NO REDNESS PRESENT, SKIN INTACT.
--- NOTE | 2018-10-31 07:00 | NUR ---
RN OPENING NOTES PT RESTING IN BED. NO COMPLAINTS OF SOB OR DISTRESS AT THIS TIME. PT HAS A RIGHT AC #20 RUNNING D51/2NS @60ML/HR, PT TOLERATING WELL. SAFETY PRECAUTIONS IN PLACE, BED IN LOWEST LOCKED POSITION, X2 SIDE RAILS UP AND CALL LIGHT WITHIN REACH. WILL CONTINUE TO MONITOR.
[2018-10-31 07:04] LABS: EOSINOPHILS % (AUTO) 9.1 % (0.0-6.0); HEMATOCRIT 41 % (39-51); LYMPHOCYTES # (AUTO) 1.3 /CMM (0.8-4.8); LYMPHOCYTES % (AUTO) 28.6 % (20.0-44.0); MEAN CORPUSCULAR HGB CONC 34 g/dl (31.0-36.0); MEAN CORPUSCULAR VOLUME 83 fL (80-96); MONOCYTES # (AUTO) 0.6 /CMM (0.1-1.30); MONOCYTES % (AUTO) 14.2 % (2.0-12.0); NEUTROPHILS # (AUTO) 2.1 /CMM (1.8-8.9); NEUTROPHILS % (AUTO) 47.1 % (43.0-81.0); PLATELET COUNT (AUTO) 272 /CMM (150-450); RED BLOOD CELL COUNT(AUTO) 4.92 MIL/uL (4.5-6.0); WHITE BLOOD COUNT (AUTO) 4.4 K/uL (4.3-11.0)
[2018-10-31 07:21] LABS: CALCIUM, SERUM 9.1 mg/dL (8.5-10.1); CREATININE 0.9 mg/dL (0.6-1.3); MAGNESIUM 2.1 mg/dL (1.8-2.4); PHOSPHORUS 3.1 mg/dL (2.5-4.9); POTASSIUM 3.3 mmol/L (3.5-5.1)
[2018-10-31 08:00] VITALS: BP 130/73
[2018-10-31] MEDS: SERTRALINE HCL 50 MG TABLET PO SCH (08:49)
[2018-10-31] MEDS: SENNOSIDES/DOCUSATE SODIUM 1 TAB TABLET PO SCH (08:58)
[2018-10-31] MEDS: POLYETHYLENE GLYCOL 3350 17 GM POWD.PACK PO SCH (08:58)
[2018-10-31] MEDS ORDERED: POTASSIUM CHLORIDE 20 MEQ TAB.PRT.SR PO SCH (10:00)
--- NOTE | 2018-10-31 11:15 | NUR ---
RN NOTES PAGED DR POE EXCHANGE @7465. PER BICYCLE MECHANIC WILL CONTINUE TO ATTEMPT TO REACH THE MD. INFORMED PATIENT AND FAMILY.
--- NOTE | 2018-10-31 14:00 | NUR ---
TAMALE MACHINE FEEDER NOTES PT AMBULATED OFF OF THE UNIT ACCOMPANIED BY HIS MOTHER AT 1400. ALL PATIENT BELONGINGS WITH PATIENT AT DISCHARGE. ALL DISCHARGE PAPERWORK SIGNED, COPIED AND ORIGINALS GIVEN TO THE PATIENT. THE PATIENT HAS CD OF CT AND XR. PT DISCHARGED HOME WITH TRANSPORTATION WITH MOTHER.
== END 2018-10-31 14:00 | disposition home or self-care (01) | DRG 373 ==
LOC: ER 15:44 → MED 18:19
PROVIDERS: ADMIT Internal Medicine; ATTEND Internal Medicine
DX: A04.9 Bacterial intestinal infection, unspecified (principal); E66.9 Obesity, unspecified; Z68.30 Body mass index [BMI] 30.0-30.9, adult; F32.9 Major depressive disorder, single episode, unspecified; E86.0 Dehydration; N28.1 Cyst of kidney, acquired
CPT/HCPCS: 36415; 71045-TC; 80048-TC; 80076-TC; 83690-TC; 83735-TC; 84100-TC; 85025-TC; 87081-TC; G0378; J2405; J2543; J3490; J7030; J7050; J7060; Q9967